=== PATIENT | female | born 1990 | race Caucasian/White ===

== ENCOUNTER 2017-01-15 12:33 | Outpatient (CLI) | payer MEDICAID | END 2017-01-15 15:05 | disposition home or self-care (01) | LOC: OBT 12:33 → L-D 12:35 → OBT 15:05 | DX: O26.893 Other specified pregnancy related conditions, third trimester (principal); O36.8130 Decreased fetal movements, third trimester, not applicable or unspecified; Z3A.41 41 weeks gestation of pregnancy | CPT/HCPCS: 76818 ==